=== PATIENT | male | born 2000 ===

== ENCOUNTER 2021-12-07 00:27 | Day surgery (SDC) | payer BC ==
[~2021-12-07 00:27] MED LIST: INFLECTRA100 MG IV
== END 2021-12-07 10:50 | disposition home or self-care (01) ==
LOC: ATC 00:27
DX: K50.113 Crohn's disease of large intestine with fistula (principal)
CPT/HCPCS: J7050; Q5103

== ENCOUNTER 2022-03-29 03:36 | Day surgery (SDC) | payer BC ==
[~2022-03-29] VITALS: Wt 83.8 kg
== END 2022-03-29 10:45 | disposition home or self-care (01) ==
LOC: ATC 03:36
DX: D50.9 Iron deficiency anemia, unspecified (principal); Z79.899 Other long term (current) drug therapy
CPT/HCPCS: 96413; 96415; J7050; Q5103

== ENCOUNTER 2022-07-19 02:18 | Day surgery (SDC) | payer BC ==
[~2022-07-19] VITALS: Wt 86.3 kg
== END 2022-07-19 11:40 | disposition home or self-care (01) ==
LOC: ATC 02:18
DX: K50.113 Crohn's disease of large intestine with fistula (principal); Z79.01 Long term (current) use of anticoagulants; Z79.899 Other long term (current) drug therapy
CPT/HCPCS: J7050; Q5103

== ENCOUNTER 2022-09-08 00:19 | Day surgery (SDC) | payer BC ==
[~2022-09-08] VITALS: Wt 85.9 kg
== END 2022-09-08 10:52 | disposition home or self-care (01) ==
LOC: ATC 00:19
DX: K50.10 Crohn's disease of large intestine without complications (principal)
CPT/HCPCS: J7050; Q5103

== ENCOUNTER 2023-04-20 01:50 | Day surgery (SDC) | payer BC ==
[~2023-04-20] VITALS: Wt 80.2 kg
[~2023-04-20 01:50] MED LIST changes: +ATOMOXETINE HCL40 M3 PO; +QUETIAPINE FUMA5012 PO
[2023-04-20 08:03] VITALS: BP 106/66
== END 2023-04-20 10:26 | disposition home or self-care (01) ==
LOC: ATC 01:50
DX: K50.90 Crohn's disease, unspecified, without complications (principal)
CPT/HCPCS: 96413; 96415; J7050; Q5103

== ENCOUNTER 2023-06-08 13:56 | Day surgery (SDC) | payer BC ==
[2023-06-08 14:21] VITALS: BP 123/69
== END 2023-06-08 22:45 | disposition home or self-care (01) ==
LOC: ATC 13:56
DX: K50.90 Crohn's disease, unspecified, without complications (principal)
CPT/HCPCS: 96413; 96415; J7050; Q5103

== ENCOUNTER 2023-07-24 02:23 | Day surgery (SDC) | payer BC ==
[2023-07-24 15:08] VITALS: BP 100/56
== END 2023-07-24 17:29 | disposition home or self-care (01) ==
LOC: ATC 02:23
DX: K50.90 Crohn's disease, unspecified, without complications (principal)
CPT/HCPCS: 96413; 96415; J7050; Q5103

== ENCOUNTER 2023-09-04 02:59 | Day surgery (SDC) | payer BC ==
[2023-09-04 09:20] VITALS: BP 107/57
== END 2023-09-04 11:53 | disposition home or self-care (01) ==
LOC: ATC 02:59
DX: K50.90 Crohn's disease, unspecified, without complications (principal)
CPT/HCPCS: 96413; 96415; J7050; Q5103

== ENCOUNTER → 2023-09-19 | Outpatient (CLI) | payer BC ==
[2023-09-19 15:12] LABS: Adenovirus F 40/41 Not Detected (NOT DETECT); Astrovirus Not Detected (NOT DETECT); Campylobacter Sp Not Detected (NOT DETECT); Cryptosporidium Not Detected (NOT DETECT); Cyclospora Cayetanensis Not Detected (NOT DETECT); E. Coli O157 Not Detected (NOT DETECT); Entamoeba Histolytica Not Detected (NOT DETECT); Enteroaggregative E. coli-EAEC Not Detected (NOT DETECT); Enteropathogenic E. coli-EPEC Not Detected (NOT DETECT); Enterotoxigenic E. coli-ETEC Not Detected (NOT DETECT); Giardia Lamblia Not Detected (NOT DETECT); Norovirus GI/GII Not Detected (NOT DETECT); Plesiomonas Shigelloides Not Detected (NOT DETECT); Rotavirus A Not Detected (NOT DETECT); Salmonella Sp Not Detected (NOT DETECT); Sapovirus Not Detected (NOT DETECT); Shiga Toxin-prod E. coli-STEC Not Detected (NOT DETECT); Shigella/Enteroin E. coli-EIEC Not Detected (NOT DETECT); Vibrio Cholerae Not Detected (NOT DETECT); Vibrio Sp Not Detected (NOT DETECT); Yersinia Enterocolitica Not Detected (NOT DETECT)
[2023-09-21 05:15] LABS: CALPROTECTIN,FECAL >3000 ug/g (<=49)
== END | disposition home or self-care (01) ==
LOC: LAB SHORT 12:30 → LAB 12:30 → LAB FUT 02-20 16:05
PROVIDERS: Internal Medicine Gastroenterology
DX: K50.90 Crohn's disease, unspecified, without complications (principal)
CPT/HCPCS: 83993; 87507

== ENCOUNTER 2023-10-03 14:13 | Day surgery (SDC) | payer BC ==
[~2023-10-03] VITALS: Ht 180.3 cm; Wt 69.9 kg
[2023-10-03] MEDS ORDERED: ERGO50000 (14:44)
[2023-10-03] MEDS ORDERED: Vitamin C100 M1 (14:44)
[2023-10-03] MEDS ORDERED: INFLECTRA100 MG (14:44)
[2023-10-03 17:21] VITALS: BP 101/60
== END 2023-10-03 17:11 | disposition home or self-care (01) ==
LOC: ORSCSDS 14:13
PROVIDERS: Internal Medicine Gastroenterology
PROC: 0DBB8ZX Excision of Ileum, Via Natural or Artificial Opening Endoscopic, Diagnostic (ICD-10-PCS; principal; 2023-10-03 15:30)
PROC: 0DBE8ZX Excision of Large Intestine, Via Natural or Artificial Opening Endoscopic, Diagnostic (ICD-10-PCS; principal; 2023-10-03 15:30)
DX: K50.90 Crohn's disease, unspecified, without complications (principal); F41.8 Other specified anxiety disorders; Z79.899 Other long term (current) drug therapy
CPT/HCPCS: 88305; J0461; J1980; J2001; J2405; J2704; J7120; Q9968

== ENCOUNTER 2023-10-16 02:49 | Day surgery (SDC) | payer BC ==
[~2023-10-16 02:49] MED LIST changes: +ERGO50000; +INFLECTRA100 MG; +Vitamin C100 M1
[2023-10-16 09:07] VITALS: BP 108/68
[2023-10-16] MEDS ORDERED: BUDESONIDE EC3 M5 PO (09:18)
[2023-10-16] MEDS ORDERED: QUETIAPINE FUMA5012 PO (09:18)
[2023-10-16] MEDS ORDERED: ENTYVIO300 M1 IV (09:19)
[2023-10-16 10:06] VITALS: BP 114/72
== END 2023-10-16 10:25 | disposition home or self-care (01) ==
LOC: ATC 02:49
DX: K50.90 Crohn's disease, unspecified, without complications (principal)
CPT/HCPCS: 96365; J3380; J7050

== ENCOUNTER 2023-10-30 03:48 | Day surgery (SDC) | payer BC ==
[~2023-10-30 03:48] MED LIST changes: +BUDESONIDE EC3 M5 PO; +ENTYVIO300 M1 IV
[2023-10-30 09:05] VITALS: BP 112/76
== END 2023-10-30 10:15 | disposition home or self-care (01) ==
LOC: ATC 03:48
DX: K50.90 Crohn's disease, unspecified, without complications (principal)
CPT/HCPCS: 96365; J3380; J7050